=== PATIENT | female | born 1985 | race Caucasian/White ===

== ENCOUNTER → 2018-02-02 03:03 | Outpatient (CLI) | payer BC, SELFPAY ==
[2018-02-02 09:18] LABS: Absolute Basophil Count 0.03 k/cumm (0.0-0.2); Absolute Eosinophil Count 0.17 k/cumm (0.0-0.7); Absolute Lymphocyte Count 1.79 k/cumm (1.2-3.4); Absolute Monocyte Count 0.28 k/cumm (0.11-0.7); Absolute Neutrophil Count 2.67 k/cumm (1.2-6.7); Basophils % 0.6; Eosinophils % 3.4; HCT 38.2 % (36.0-46.0); HGB 12.9 g/dL (12.0-15.5); Lymphocytes % 36.2; Mean Corp. HGB Concentration 33.8 g/dL (32.0-36.0); Mean Corpuscular Hemoglobin 28.3 pg (27.0-33.0); Mean Corpuscular Volume 83.8 fL (80-95); Mean Platelet Volume 11.8 fL (8.0-11.0); Monocytes % 5.7; Neutrophils % 54.1; Platelet Count 157 x1000/uL (130-400); RBC 4.56 m/cumm (4.00-5.20); RBC Distribution Width 12.5 % (11.7-14.6); White Blood Cell Count 4.94 k/cumm (4.4-10.8)
[2018-02-02 10:59] LABS: Cholesterol 159 mg/dL (50-200); Glucose 79 mg/dL (70-100); HDL Cholesterol 62 mg/dL (40-60); LDL CHOLESTEROL 90 mg/dL (<100); TSH (W/Ref FT4) 1.73 uIU/mL (0.358-3.74); Triglyceride 35 mg/dL (30-150)
== END ==
PROVIDERS: PCP Nurse Practitioner Family; Visit Provider Nurse Practitioner Family
DX: Z00.00 Encounter for general adult medical examination without abnormal findings (principal); L65.9 Nonscarring hair loss, unspecified; K58.2 Mixed irritable bowel syndrome
CPT/HCPCS: 36415; 80061; 82947; 83721; 84443; 85025

== ENCOUNTER 2018-10-09 09:37 | Emergency (ER) | payer OTHER, SELFPAY ==
--- NOTE | 2018-10-09 09:47 | NUR.NOTE ---
pt states that on night she noticed a small rash under her left breast and had burning stabbing pain that radiates along her rib to the spinal cord
[2018-10-09 09:49] VITALS: BP 113/76; PULSE 77; RESP 16; TEMP 37.3; O2SAT 99
--- NOTE | 2018-10-09 10:11 | W.ED.GENAD ---
Discharge Plan Disposition Patient Disposition: HOME Condition: Stable Discharge Details Chief Complaint: RashLesion Clinical Impression: Herpes zoster Primary Care Provider: Marybeth Bsasett ED Provider: Warner Wolfe Home Meds and New Rx's Prescriptions: New valacyclovir 1 gram tablet 1,000 mg PO TID 7 Days Qty: 21 RF: 0 Discharge Instructions Instructions: Shingles (ED) Additional Instructions: You may continue to use [id number] acetaminophen or Tylenol as needed for discomfort, you may also apply lidocaine cream or patch to area of rash or sensitivity. Return immediately to the emergency department for any significant worsening of symptoms or further concerns otherwise follow-up with your primary care provider as needed for reassessment or if not improving. Referrals: Marybeth Bassett, FISHER MUSSEL [Primary Care Provider] - (As needed for reassessment) Medical Decision Making Patient presenting the emergency department for chief complaint of rash. She states that this started 2-1/2 days ago after having a sore throat and cold-like symptoms for 24 hours. She states significant sensitivity just below the bra line on the left anterior chest wall radiating to the back. Patient denies any fever chills, other rash, other symptoms. Physical exam shows a 4 cm diameter circular patch of vesicles with erythema and sensitivity to palpation of the skin along the associated dermatome. I feel that this is consistent with shingles. Patient denies any chance of and states menstrual cycle 2 weeks ago. Given single area of rash I do not feel that steroids are needed the patient was encouraged to use pekx-rzb-zmqmifm pain medication including lidocaine for discomfort. Patient placed on valacyclovir. Return precautions discussed. After discussion of diagnosis and plan of care patient has no further needs, questions, or concerns and states clear understanding to return to the emergency department for any worsening symptoms. HPI General Mode of arrival: ambulatory. Date/Time Provider Initiated Documentation: 10/09/18 10:00. Limitations to Documentation: no limitations. Information obtained by: patient and RN notes reviewed. History of Present Illness 32 year old F presents to the emergency department with the chief complaint of rash, described as moderate, with intensity rated at 6. Quality is described as burning, and is localized to the chest (left chest wall). Patient started experiencing this day(s) (3) and it has been constant. No relieving factors improve symptom(s), Patient did receive the following treatments prior to arrival, none Related Data Home Medications Medication Instructions Recorded Confirmed valacyclovir 1,000 mg PO TID 7 Days #21 tab 10/09/18 Previous Rx's Medication Instructions Recorded valacyclovir 1,000 mg PO TID 7 Days #21 tab 10/09/18 Allergies Allergy/AdvReac Type Severity Reaction Status Date / Time amoxicillin trihydrate Allergy Intermediate SORE Unverified 10/09/18 09:51 [From Augmentin] JOINTS AND RASH potassium clavulanate Allergy Intermediate SORE Unverified 10/09/18 09:51 [From Augmentin] JOINTS AND RASH cefazolin sodium [From Ancef] AdvReac Unknown Unverified 10/09/18 09:51 General Stated Complaint: RashLesion ENRICO: 5 Review of Systems Constitutional Denies body ache(s), Denies chills, Denies fever(s) and Reports other (ill feeling) ENT Reports sore throat Integumentary/Breasts Reports as per HPI and Reports rash PFSH Medical History Allergic rhinitis (Inactive) IBS (irritable bowel syndrome) (Inactive) Surgical History Cholecystectomy (Inactive 09/12/13) Colonoscopy - MAC (Inactive) EGD - MAC (Inactive 05/19/14) Family History Mother Melanoma in situ Father No problems noted. Brother No problems noted. Brother No problems noted. Son No problems noted. Son No problems noted. Daughter No problems noted. Maternal Grandfather Melanoma in situ Non Hodgkin's lymphoma Maternal Grandmother Myocardial infarction Heart disease Paternal Grandfather Heart disease Paternal Grandmother No problems noted. Social History Smoking/Tobacco Use Status: Never Alcohol Intake: never Drug use: Never Substance use type: does not use Do you feel safe at home: Yes Do you feel safe in your relationship?: Yes History History 4 Para 3 Hx # Term Pregnancies Multiple births Hx # Pregnancies Ectopic pregnancies AB induced 1 Hx Number of Living Children 3 AB spontaneous Exam Const General: cooperative, no acute distress and not ill appearing Orientation: alert, awake and oriented x3 Resp Effort & Inspection: normal respiratory effort, able to speak in complete sentences and no respiratory distress Skin Rashes: rashes noted (Erythematous vesicular rash left anterior chest wall) Neuro General: alert, awake and oriented x3 Course Vital Signs Temperature 37.3 C 10/09/18 09:49 Pulse 77 10/09/18 09:49 Respiratory Rate 16 10/09/18 09:49 Blood Pressure 113/76 10/09/18 09:49 Pulse Oximetry 99 10/09/18 09:49 Temperature 37.3 C 10/09/18 09:49 Temperature Source Tympanic 10/09/18 09:49 Pulse 77 10/09/18 09:49 Respiratory Rate 16 10/09/18 09:49 Respiratory Effort 10/09/18 09:51 Blood Pressure 113/76 10/09/18 09:49 Blood Pressure Position Sitting 10/09/18 09:49 Pulse Oximetry 99 10/09/18 09:49 Oxygen Delivery Method Room Air 10/09/18 09:49 Oxygen Flow Rate 0 10/09/18 09:49 Pain Level 7 10/09/18 09:49
--- NOTE | 2018-10-09 10:15 | ED.GENADUL_ITS ---
Discharge Plan Disposition Patient Disposition: HOME Condition: Stable Discharge Details Chief Complaint: RashLesion Clinical Impression: Herpes zoster Primary Care Provider: Marybeth Bassett ED Provider: Warner Wolfe Home Meds and New Rx's Prescriptions: New valacyclovir 1 gram tablet 1,000 mg PO TID 7 Days Qty: 21 RF: 0 Discharge Instructions Instructions: Shingles (ED) Additional Instructions: You may continue to use lpij-qfo-mczqyyv acetaminophen or Tylenol as needed for discomfort, you may also apply lidocaine cream or patch to area of rash or sensitivity. Return immediately to the emergency department for any significant worsening of symptoms or further concerns otherwise follow-up with your primary care provider as needed for reassessment or if not improving. Referrals: Marybeth Bassett, [employer] [Primary Care Provider] - (As needed for reassessment) Medical Decision Making Patient presenting the emergency department for chief complaint of rash. She states that this started 2-1/2 days ago after having a sore throat and cold-like symptoms for 24 hours. She states significant sensitivity just below the bra line on the left anterior chest wall radiating to the back. Patient denies any fever chills, other rash, other symptoms. Physical exam shows a 4 cm diameter circular patch of vesicles with erythema and sensitivity to palpation of the skin along the associated dermatome. I feel that this is consistent with shingles. Patient denies any chance of and states menstrual cycle 2 w eeks ago. Given single area of rash I do not feel that steroids are needed the patient was encouraged to use xgaq-kmn-argbaaq pain medication including lidocaine for discomfort. Patient placed on valacyclovir. Return precautions discussed. After discussion of diagnosis and plan of care patient has no further needs, questions, or concerns and states clear understanding to return to the emergency department for any worsening symptoms. HPI General Mode of arrival: ambulatory . Date/Time Provider Initiated Documentation: 10/09/18 10:00 . Limitations to Documentation: no limitations . Information obtained by: patient and RN notes reviewed . History of Present Illness 32 year old F presents to the emergency department with the chief complaint of rash, described as moderate, with intensity rated at 6. Quality is described as burning, and is localized to the chest (left chest wall). Patient started experiencing this day(s) (3) and it has been constant. No relieving factors improve symptom(s), Patient did receive the following treatments prior to arrival, none Related Data Home Medications Medication Instructions Recorded Confirmed valacyclovir 1,000 mg PO TID 7 Days #21 tab 10/09/18 Previous Rx's Medication Instructions Recorded valacyclovir 1,000 mg PO TID 7 Days #21 tab 10/09/18 Allergies Allergy/AdvReac Type Severity Reaction Status Date / Time amoxicillin trihydrate Allergy Intermediate SORE Unverified 10/09/18 09:51 [From Augmentin] JOINTS AND RASH potassium clavulanate Allergy Intermediate SORE Unverified 10/09/18 09:51 [From Augmentin] JOINTS AND RASH cefazolin sodium [From Ancef] AdvReac Unknown Unverified 10/09/18 09:51 General Stated Complaint: RashLesion ENRICO: 5 Review of Systems Constitutional Denies body ache(s), Denies chills, Denies fever(s) and Reports other (ill feeling) ENT Reports sore throat Integumentary/Breasts Reports as per HPI and Reports rash PFSH Medical History Allergic rhinitis (Inactive) IBS (irritable bowel syndrome) (Inactive) Surgical History Cholecystectomy (Inactive 09/12/13) Colonoscopy - MAC (Inactive) EGD - MAC (Inactive 05/19/14) Family History Mother Melanoma in situ Father No problems noted. Brother No problems noted. Brother No problems noted. Son No problems noted. Son No problems noted. Daughter No problems noted. Maternal Grandfather Melanoma in situ Non Hodgkin's lymphoma Maternal Grandmother Myocardial infarction Heart disease Paternal Grandfather Heart disease Paternal Grandmother No problems noted. Social History Smoking/Tobacco Use Status: Never Alcohol Intake: never Drug use: Never Substance use type: does not use Do you feel safe at home: Yes Do you feel safe in your relationship?: Yes History History 4 Para 3 Hx # Term Pregnancies Multiple births Hx # Pregnancies Ectopic pregnancies AB induced 1 Hx Number of Living Children 3 AB spontaneous Exam Const General: cooperative, no acute distress and not ill appearing Orientation: alert, awake and oriented x3 Resp Effort & Inspection: normal respiratory effort, able to speak in complete sentences and no respiratory distress Skin Rashes: rashes noted (Erythematous vesicular rash left anterior chest wall) Neuro General: alert, awake and oriented x3 Course Vital Signs Temperature 37.3 C 10/09/18 09:49 Pulse 77 10/09/18 09:49 Respiratory Rate 16 10/09/18 09:49 Blood Pressure 113/76 10/09/18 09:49 Pulse Oximetry 99 10/09/18 09:49 Temperature 37.3 C 10/09/18 09:49 Temperature Source Tympanic 10/09/18 09:49 Pulse 77 10/09/18 09:49 Respiratory Rate 16 10/09/18 09:49 Respiratory Effort 10/09/18 09:51 Blood Pressure 113/76 10/09/18 09:49 Blood Pressure Position Sitting 10/09/18 09:49 Pulse Oximetry 99 10/09/18 09:49 Oxygen Delivery Method Room Air 10/09/18 09:49 Oxygen Flow Rate 0 10/09/18 09:49 Pain Level 7 10/09/18 09:49
[2018-10-09 10:35] VITALS: BP 113/76; PULSE 77; RESP 16; TEMP 37.3; O2SAT 99
== END 2018-10-09 10:36 | disposition home or self-care (01) ==
PROVIDERS: Emergency Provider Nurse Practitioner Family; PCP Nurse Practitioner Family
DX: B02.9 Zoster without complications (principal)
CPT/HCPCS: 99283

== ENCOUNTER 2019-03-09 08:46 | Outpatient (CLI) | payer OTHER, SELFPAY ==
[2019-03-09 11:59] LABS: PTT Activated 25.7 sec (21.0-31.4)
[2019-03-09 12:54] LABS: HCT 39.5 % (36.0-46.0); Mean Corp. HGB Concentration 32.9 g/dL (32.0-36.0); Mean Corpuscular Hemoglobin 27.8 pg (27.0-33.0); Mean Corpuscular Volume 84.4 fL (80-95); Platelet Count 169 x1000/uL (130-400); RBC 4.68 m/cumm (4.00-5.20); RBC Distribution Width 12.8 % (11.7-14.6); White Blood Cell Count 4.21 k/cumm (4.4-10.8)
== END 2019-03-09 09:06 ==
PROVIDERS: PCP Nurse Practitioner Family; Visit Provider Family Medicine
DX: D64.9 Anemia, unspecified (principal)
CPT/HCPCS: 36415; 85027; 85730

== ENCOUNTER 2019-03-15 02:32 | Outpatient (CLI) | payer OTHER, SELFPAY ==
--- NOTE | 2019-03-18 10:37 | HOLTER_ITS ---
DATE OF DICTATION: March 18, 2019 INDICATION: Palpitations. ANALYSIS TIME: 48 hours. Baseline sinus rhythm. Average heart rate 76 bpm, minimum heart rate 58 bpm, maximum heart rate 119 bpm. Rare isolated PVC's. No non-sustained VT. Rare isolated PAC's. No SVT or atrial fibrillation. No significant pauses or bradyarrhythmias. Patient diary entries of fluttering sensation correspond to sinus rhythm.
== END 2019-03-15 02:52 ==
PROVIDERS: PCP Nurse Practitioner Family; Visit Provider Family Medicine
DX: R00.2 Palpitations (principal); I49.3 Ventricular premature depolarization; I49.1 Atrial premature depolarization
CPT/HCPCS: 93225

== ENCOUNTER 2019-03-17 08:45 | Outpatient (CLI) | payer OTHER, SELFPAY | END 2019-03-17 09:05 | PROVIDERS: PCP Nurse Practitioner Family; Visit Provider Family Medicine | DX: R00.2 Palpitations (principal); I49.3 Ventricular premature depolarization; I49.1 Atrial premature depolarization | CPT/HCPCS: 93226 ==

== ENCOUNTER 2019-03-19 11:32 | Emergency (ER) | payer OTHER, SELFPAY ==
[2019-03-19] VITALS (25 sets, daily range): BP systolic 94–142; BP diastolic 64–83; PULSE 64–92; RESP 9–20; TEMP 36.5; O2SAT 87–100
[2019-03-19 12:18] LABS: Abs Immature Grans 0.03 k/cumm (0.0-0.09); Absolute Basophil Count 0.02 k/cumm (0.0-0.2); Absolute Eosinophil Count 0.02 k/cumm (0.0-0.7); Absolute Lymphocyte Count 1.71 k/cumm (1.2-3.4); Absolute Monocyte Count 0.24 k/cumm (0.11-0.7); Absolute Neutrophil Count 3.82 k/cumm (1.2-6.7); Basophils % 0.3; Eosinophils % 0.3; HCT 40.9 % (36.0-46.0); HGB 14.1 g/dL (12.0-15.5); Immature Grans % 0.5; Lymphocytes % 29.3; Mean Corp. HGB Concentration 34.5 g/dL (32.0-36.0); Mean Corpuscular Hemoglobin 27.9 pg (27.0-33.0); Mean Platelet Volume 12.1 fL (8.0-11.0); Monocytes % 4.1; Neutrophils % 65.5; Platelet Count 171 x1000/uL (130-400); RBC 5.05 m/cumm (4.00-5.20); RBC Distribution Width 13.1 % (11.7-14.6); White Blood Cell Count 5.84 k/cumm (4.4-10.8)
--- NOTE | 2019-03-19 12:35 | W.ED.GENAD ---
Discharge Plan Disposition Patient Disposition: HOME Condition: Improving Discharge Details Chief Complaint: Chest Pain Clinical Impression: Atypical chest pain Primary Care Provider: Marybeth Bassett ED Provider: Prakash Delatorre Home Meds and New Rx's Prescriptions: No Action No Known Home Meds RF: 0 Discharge Instructions Instructions: Chest Pain (ED) Additional Instructions: We will ask our care management team to make you a follow-up appointment for recheck at [facility]. Home to rest today. Return if you develop a fever, cough, shortness of breath, recurrent chest discomfort or any other acute concern. Your work-up today included blood work, CT of the chest, and EKG. Medical Decision Making 33-year-old female who is had months of intermittent episodes of fluttering sensation in her chest. She recently did go undergo Holter monitor for 48 hours which revealed single PVC, sinus tachycardia to the 130s, but no ventricular arrhythmias. Today while picking apples she developed central chest discomfort she describes 6 out of 10 pressure radiating to the right arm, resolved by the time of presentation to the ED. She arrives afebrile, blood pressure 142/83, normal pulse and oxygenation. Exam is reassuring. Her differential diagnosis would include PE, chest mass, pneumonitis, acute coronary syndrome of I feel this is less likely given her lack of significant risk factors. Patient had IV access established, given fluid bolus, referred for laboratory testing, EKG, chest imaging. Patient's laboratory data is reassuring with unremarkable CBC, chemistries that note slight the elevated creatinine of 1.04, negative troponin, TSH that was within normal limits. Repeat troponin was obtained and negative as well. Patient without persistent symptoms during nearly 4 hours of ER observation. Discussed with her that she may have a mild costochondritis or other benign process. We will ask care management to arrange an outpatient follow-up for her in clinic. She is stable, improved, appropriate for discharge home at this time. ECG Data Attestation: I personally reviewed and interpreted this ECG (s) as follows: Interpretation: Normal sinus rhythm with a rate of 95, the QRS is narrow, normal FL interval, no ST segment elevation HPI General Mode of arrival: ambulatory. Date/Time Provider Initiated Documentation: 03/19/19 11:39. Limitations to Documentation: no limitations. Information obtained by: patient and family. History of Present Illness 33 year old F presents to the emergency department with the chief complaint of Months of fluttering in chest, chest pain today, shortness of breath, described as moderate, Quality is described as dull, and is localized to the chest. Patient extremity. Patient started experiencing this hour(s) and it has been now resolved. No relieving factors improve symptom(s), No exacerbating factors reported . Patient notes chest pain and shortness of breath. Patient did receive the following treatments prior to arrival, none Related Data Home Medications Medication Instructions Recorded Confirmed Unknown [No Known Home Meds] 03/19/19 03/19/19 Allergies Allergy/AdvReac Type Severity Reaction Status Date / Time amoxicillin trihydrate Allergy Intermediate SORE Unverified 03/19/19 11:40 [From Augmentin] JOINTS AND RASH potassium clavulanate Allergy Intermediate SORE Unverified 03/19/19 11:40 [From Augmentin] JOINTS AND RASH cefazolin sodium [From Ancef] AdvReac Unknown Unverified 03/19/19 11:40 General Stated Complaint: Chest Pain ENRICO: 3 Review of Systems Review of Systems Narrative: Recent Holter monitor unremarkable. No fever, chills, cough. No changes to bowel or bladder habits. 8 systems reviewed and otherwise negative [facility] Medical History Allergic rhinitis (Inactive) IBS (irritable bowel syndrome) (Inactive) Surgical History Cholecystectomy (Inactive 09/12/13) DR. TORRES Colonoscopy - MAC (Inactive) 02/13/14; DR. Fallon JI EGD - MAC (Inactive 05/19/14) Family History Mother Melanoma in situ Father No problems noted. Brother No problems noted. Brother No problems noted. Son No problems noted. Son No problems noted. Daughter No problems noted. Maternal Grandfather Melanoma in situ Non Hodgkin's lymphoma Maternal Grandmother Myocardial infarction Heart disease Paternal Grandfather Heart disease Paternal Grandmother No problems noted. Social History Smoking/Tobacco Use Status: Never Alcohol Intake: never Drug use: Never Substance use type: does not use Do you feel safe at home: Yes Do you feel safe in your relationship?: Yes History History 4 Para 3 Hx # Term Pregnancies Multiple births Hx # Pregnancies Ectopic pregnancies AB induced 1 Hx Number of Living Children 3 AB spontaneous Exam Narrative Exam Narrative: GEN: awake, alert, oriented 3. Pleasant, well groomed, interactive. HEAD: Normocephalic, atraumatic ENT: Mucous membranes moist, oropharynx unremarkable, External ear exam unremarkable EYES: PERRL, EOMI NECK: Full ROM, no FILOMENA, no menigismus CHEST/RESP: Nontender, clear to auscultation bilateral, no wheeze/rhonchi/rales CARDIOVASCULAR: RRR, no murmur, rub jamila. 2+ Rad pulse bilateral ABDOMEN: Soft, nontender, no mass. +Bowel sounds EXT: Full ROM, no edema, no rash Neuro: Grossly normal neurologic exam, conversant, interactive. Psych: Speech fluent, thoughts congruent, affect anxious Course Vital Signs Vital signs: Vital Signs Temperature 36.5 C 03/19/19 11:36 Pulse 86 03/19/19 11:36 Respiratory Rate 16 03/19/19 11:36 Blood Pressure 142/83 H 03/19/19 11:36 Temperature 36.5 C 03/19/19 11:36 Temperature Source Skin 03/19/19 11:36 Pulse 86 03/19/19 11:36 Respiratory Rate 16 03/19/19 11:36 Respiratory Effort Non-Labored 03/19/19 12:10 Respiratory Depth Normal 03/19/19 12:10 Respiratory Pattern Normal 03/19/19 12:10 Blood Pressure 142/83 H 03/19/19 11:36 Pain Level 6 03/19/19 11:36 Lab/Test Results Lab/Test Results: Laboratory Tests Range/Units 03/19/19 12:05 WBC (4.4-10.8) k/cumm 5.84 RBC (4.00-5.20) m/cumm 5.05 Hgb (12.0-15.5) g/dL 14.1 Hct (36.0-46.0) % 40.9 MCV (80-95) fL 81.0 MCH (27.0-33.0) pg 27.9 MCHC (32.0-36.0) g/dL 34.5 RDW (11.7-14.6) % 13.1 Plt Count (130-400) x1000/uL 171 MPV (8.0-11.0) fL 12.1 H Immature Gran % 0.5 Neutrophils % 65.5 Lymphocytes % 29.3 Monocytes % 4.1 Eosinophils % 0.3 Basophils % 0.3 Absolute Neutrophils (1.2-6.7) k/cumm 3.82 Absolute Lymphocytes (1.2-3.4) k/cumm 1.71 Absolute Monocytes (0.11-0.7) k/cumm 0.24 Absolute Eosinophils (0.0-0.7) k/cumm 0.02 Absolute Basophils (0.0-0.2) k/cumm 0.02
[2019-03-19 12:38] LABS: ALT 13 U/L (14-59); AST 12 U/L (15-37); Albumin 4.1 g/dL (3.4-5.0); Alkaline Phosphatase 82 U/L (46-116); Anion Gap 10.3 mmol/L (3-11); BUN 12 mg/dL (7-18); Bilirubin, Total 0.4 mg/dL (0.2-1.0); CO2 24.7 mmol/L (21.0-32.0); CREATININE 1.04 mg/dL (0.55-1.02); Calcium 8.5 mg/dL (8.5-10.1); Chloride 105 mmol/L (98-107); Glucose 117 mg/dL (70-100); Magnesium 2.1 mg/dL (1.8-2.4); Potassium 3.8 mmol/L (3.5-5.1); Sodium 140 mmol/L (136-145); Total Protein 7.8 g/dL (6.4-8.2)
[2019-03-19] MEDS: Normal Saline 1,000 ML 1000 ML IV (12:38)
[2019-03-19 12:40] LABS: Troponin I < 0.05 ng/mL (0.00-0.06)
[2019-03-19 13:18] LABS: D-Dimer 172 ng/mlFEU (<500)
[2019-03-19 13:41] LABS: TSH 1.85 uIU/mL (0.36-3.74)
[2019-03-19] MEDS: Omnipaque 350 MG/ML 100 ML BTL IJ (13:42)
--- NOTE | 2019-03-19 13:45 | DI.CT_ITS ---
EXAM: CT CHEST PE CTA CLINICAL HISTORY: Chest pain, radiating to R. TECHNIQUE: Imaging Protocol: Axial CT angiography was performed with multi-slice acquisition and mu lti-planar and/or 3D reconstructions. CONTRAST MATERIAL: Intravenous: Omnipaque 350 Contrast volume:structured data in ml Contrast route:I V - Oral:yes / no COMPARISON: No exams were available for comparison FINDINGS: Pulmonary Arteries: No evidence of filling defect to suggest pulmonary emboli. Tracheobronchial tree: Patent where visualized. Mediastinum and Aracelis: No dominant adenopathy or fluid collection. Pulmonary parenchyma: No consolidation or dominant measurable mass. No architectural distortion. Pleura: No effusion or pneumothorax. Heart/Aorta: Thoracic aorta non-dilated. The heart is not dilated. No coronary artery calcifications are seen. Upper abdomen: Unremarkable. IMPRESSION: No evidence of pulmonary embolism. DATA REPOSITORY: All CT scans at this facility are submitted to the National Radiology Data Registry (NRDR) Dose Index Registry (DIR) with the [employer] (ACR). RADIATION OPTIMIZATION: All CT scans at this facility use at least one of these dose optimization te chniques: automated exposure control; mA and/or kV adjustment per patient size (includes targeted exa ms where dose is matched to clinical indication); or iterative reconstruction.
--- NOTE | 2019-03-19 14:25 | DI.VRAD_ITS ---
PROCEDURE INFORMATION: Exam: CT Angiography Chest With Contrast Exam date and time: 03/19/2019 12:59 PM Clinical history: 33 years old, female; Other: Chest pain, radiating to R TECHNIQUE: Imaging protocol: Computed tomographic angiography of the chest with intravenous contrast. 3D rendering: MIP reconstructed images were created and reviewed. Radiation optimization: All CT scans at this facility use at least one of these dose optimization techniques: automated exposure control; mA and/or kV adjustment per patient size (includes targeted exams where dose is matched to clinical indication); or iterative reconstruction. Contrast material: OMNIPAQUE 350; Contrast volume: 80 ml; Contrast route: IV; COMPARISON: CR ABD FLAT UPRIGHT PA CHEST 06/08/2014 10:05 AM FINDINGS: Pulmonary arteries: There are no intraluminal filling defects identified within the pulmonary arterial branches to suggest acute pulmonary embolus. Aorta: The aorta is non-aneurysmal. No acute aortic abnormality is identified. Lungs: There is no significant airspace consolidation identified. There is no evidence of an endobronchial lesion. No suspicious pulmonary parenchymal mass or nodule is identified. Pleural space: Large effusion, pneumothorax is not seen Heart: Heart size is within normal limits. There is no significant pericardial effusion. Lymph nodes: No significant adenopathy. Bones/joints: There is no acute or destructive bony abnormality identified. Soft tissues: Subcutaneous soft tissues are unremarkable. Other findings: No acute findings are identified in the upper abdomen. IMPRESSION: No acute findings. No evidence of acute pulmonary embolus. Dictated and Authenticated by: Yuli Ramirez MD. Ordering:FATUMA Randall MD
[2019-03-19 15:19] LABS: Troponin I < 0.05 ng/mL (0.00-0.06)
--- NOTE | 2019-03-19 15:43 | NUR.NOTE ---
Referral faxed to [facility].Nursing Note:
== END 2019-03-19 16:00 | disposition home or self-care (01) ==
PROVIDERS: Emergency Provider Emergency Medicine; PCP Nurse Practitioner Family
DX: R07.89 Other chest pain (principal)
CPT/HCPCS: 36415; 71275; 80053; 96360; 99285; 83735; 84443; 84484; 85025; 85379; 99284; J3490

== ENCOUNTER 2019-07-22 13:46 | Outpatient (REF) | payer MEDICAID, SELFPAY ==
--- NOTE | 2019-07-22 13:15 | PAPFT_PTH ---
PATIENT: Sandra Gomez LOC: [facility] U#:[id number] AGE/SX: 33/F ROOM: RE07/22/[address]: JENS Grey : 1985 BED: DIS: 07/22/2019 SPEC #: [id number] RECD: 07/22/19 17:50 STATUS: EMILE REAnna #: [id number] ARACELI: 07/22/19 13:[address]: Olivia Salazar DEPT: [facility] Cytology RECD BY: Sasha Bliss ENTERED: 07/22/19 17:50 SP TYPE: PAPFT COBY DR: JENS Wright Tissues: 1 - CX/ENDOCX FOR PAP SMEARS Procedures: PAP THIN PREP/UVM Screening HPV DNA PROBE Comments: [id number]
== END 2019-07-22 14:06 ==
LOC: LBN 13:46
PROVIDERS: PCP Nurse Practitioner Family; Visit Provider Nurse Practitioner Family
DX: Z12.4 Encounter for screening for malignant neoplasm of cervix (principal); Z11.51 Encounter for screening for human papillomavirus (HPV)
CPT/HCPCS: 88142; 87624

== ENCOUNTER 2020-08-28 12:46 | Outpatient (REF) | payer MEDICAID, SELFPAY ==
--- NOTE | 2020-08-28 10:00 | PAPFT_PTH ---
PATIENT: Sandra Gomez LOC: [facility] U#:[id number] AGE/SX: 34/F ROOM: RE08/28/[address]: JENS Grey : 1985 BED: DIS: 08/28/2020 SPEC #: [id number] RECD: 08/28/20 17:22 STATUS: EMILE REAnna #: [id number] ARACELI: 08/28/20 10:[address]: Olivia Salazar DEPT: [facility] Cytology RECD BY: Sasha Bliss ENTERED: 08/28/20 17:23 SP TYPE: PAPFT COBY DR: JENS Wright Tissues: 1 - CX/ENDOCX FOR PAP SMEARS Procedures: PAP THIN PREP/UVM Screening HPV DNA PROBE Comments: [id number]
== END 2020-08-28 12:47 | disposition home or self-care (01) ==
LOC: LBN 12:46
PROVIDERS: PCP Nurse Practitioner Family; Visit Provider Nurse Practitioner Family
DX: Z12.4 Encounter for screening for malignant neoplasm of cervix (principal); Z11.51 Encounter for screening for human papillomavirus (HPV)
CPT/HCPCS: 88142; 87624

== ENCOUNTER 2020-09-20 08:52 | Outpatient (CLI) | payer MEDICAID, SELFPAY ==
[2020-09-21 13:07] LABS: COVID-19 RT-PCR UVMMC Result Negative (Negative)
== END 2020-09-20 08:53 | disposition home or self-care (01) ==
LOC: LBO 08:53
PROVIDERS: PCP Nurse Practitioner Family; Visit Provider Nurse Practitioner Family
DX: Z20.822 Contact with and (suspected) exposure to COVID-19 (principal)
CPT/HCPCS: U0003

== ENCOUNTER 2020-09-25 09:38 | Outpatient (CLI) | payer MEDICAID, SELFPAY ==
[2020-09-26 17:58] LABS: COVID-19 RT-PCR UVMMC Result Negative (Negative)
== END 2020-09-25 09:39 | disposition home or self-care (01) ==
LOC: LBO 09:38
PROVIDERS: PCP Nurse Practitioner Family; Visit Provider Nurse Practitioner Family
DX: Z20.822 Contact with and (suspected) exposure to COVID-19 (principal)
CPT/HCPCS: U0003

== ENCOUNTER 2021-03-07 13:17 | Outpatient (REF) | payer OTHER, SELFPAY ==
[2021-03-08 16:36] LABS: COVID-19 RT-PCR UVMMC Result Negative (Negative)
== END 2021-03-07 13:18 | disposition home or self-care (01) ==
LOC: LBN 13:17
PROVIDERS: PCP Nurse Practitioner Family
DX: Z20.822 Contact with and (suspected) exposure to COVID-19 (principal); R06.02 Shortness of breath
CPT/HCPCS: U0003

== ENCOUNTER 2021-09-26 00:35 | Outpatient (CLI) | payer MEDICAID, SELFPAY ==
--- NOTE | 2021-09-26 07:00 | DI.US_ITS ---
Exam(s) US PELVIS TRANSVAGINAL EXAM: US PELVIS TRANSVAGINAL CLINICAL HISTORY: Abnormal bleeding,N93.9. TECHNIQUE: Transabdominal and transvaginal pelvic ultrasound was performed using standard protocol. COMPARISON: US OB ASSESSMENT - WEIGHT/JC from 08/10/2017 FINDINGS: KIDNEYS: Kidneys are symmetric in size. No evidence of renal calculi. No evidence of hydronephrosis. No renal mass or cyst identified. UTERUS: Position: Anteverted. Size: 10.4 long by 4.4 AP by 5.4 transverse cm Endometrium: 1.0 cm. Normal for patient's menstrual status. Myometrium: Unremarkable. Cervix: Unremarkable. OVARIES: Right: 3.2 x 2.6 x 1.8 cm Cyst or mass: No suspicious cystic or solid masses. Left: 2.6 x 2.4 x 2.6 cm Cyst or mass: No suspicious cystic or solid masses. DOPPLER: Color: Symmetric and uniform flow to both ovaries. No hyperemia. CUL-DE-SAC: Free fluid: None. Other: None. IMPRESSION: 1. Normal sonographic appearance of the kidneys. 2. Normal-appearing uterus with endometrial stripe within normal limits. 3. Unremarkable bilateral ovaries. DATA REPOSITORY:
== END 2021-09-26 00:55 ==
PROVIDERS: PCP Nurse Practitioner Family; Visit Provider Nurse Practitioner Family
DX: N93.8 Other specified abnormal uterine and vaginal bleeding (principal)
CPT/HCPCS: 76830; 76856

== ENCOUNTER 2021-12-21 18:27 | Emergency (ER) | payer MEDICAID, SELFPAY ==
[2021-12-21 18:32] VITALS: BP 123/81; PULSE 71; RESP 18; TEMP 36.6; O2SAT 100
[2021-12-21 18:56] LABS: Bilirubin Negative (Negative); Blood Trace-intact (Negative); Clarity Clear (Clear); Glucose Negative (Negative); Ketones Negative (Negative); Leukocyte Esterase Negative (Negative); Nitrite Negative (Negative); Urobilinogen 0.2 EU/dL (Up TO 0.2); pH 6.5 (5-8)
--- NOTE | 2021-12-21 19:02 | ED.GENADUL_ITS ---
Discharge Plan Disposition Patient Disposition: HOME Condition: Stable Discharge Details Clinical Impression: Abdominal pain Primary Care Provider: Marybeth Bassett ED Provider: Lin Briceño Home Meds and New Rx's Prescriptions: No Action clotrimazole-betamethasone 1-0.05 % cream 1 applic topical BID 10 Days Qty: 15 2RF Discharge Instructions Instructions: Abdominal Pain (ED) Additional Instructions: Please have an outpatient ultrasound as scheduled by the diagnostic imaging department. You may follow-up for the results in the emergency department or with your PCP. Continue to take the omeprazole daily. Advance diet as tolerated. Please stay away from anything fried fatty dairy or spicy. Follow up with primary care provider in 3-5 days. Return to ED sooner if any worsening pain, fever, vomiting, diarrhea or concerns. Increase oral fluids. Referrals: Marybeth Bassett, REGISTRATION REP [Primary Care Provider] - 5 days Medical Decision Making 36-year-old female presents to the ER with chief complaint of midepigastric abdominal pain that radiates to the right upper quadrant which has been ongoing intermittently for the last 2 weeks. worsening constant pain over the last 24 to 48 hours. She reports nausea and acid reflux type symptoms denies any vomiting no diarrhea denies any chest pain shortness of breath cough fever or chills. CBC, CMP, lipase, urinalysis, urine POC HCG negative per RN report. Differential diagnosis includes vomiting to gastroenteritis, gallstones, GERD, peptic ulcer disease Will consider CT abdomen pelvis pending labs. Urinalysis shows trace blood no leukocytes no nitrites no evidence of UTI. Patient is currently on her menses. No evidence of leukocytosis CBC largely within normal limits CMP also largely within normal notes lipase within normal limits, Discussed lab results with patient and options for CT imaging versus outpatient ultrasound. Shared decision making discussed patient opted to have outpatient ultrasound early next week. GI cocktail ordered to see if this improves patient discomfort. This text was generated using [employer]Gameation system, please disregard any oddities of phrase or misspellings. Medical Records Medical records reviewed: Yes I reviewed the patient's medical records. Lab Data Lab results reviewed: Yes I reviewed the patient's lab results. Labs: Laboratory Tests Range/Units 12/21/21 12/21/21 12/21/21 17:40 19:00 19:00 WBC (4.4-10.8) 10^3/uL 8.35 RBC (3.93-5.22) 10^6/uL 4.44 Hgb (11.2-15.7) g/dL 12.8 Hct (36.0-46.0) % 38.6 MCV (80-95) fL 87 MCH (27.0-33.0) pg 28.8 MCHC (32.0-36.0) % 33.2 RDW (11.7-14.6) % 11.9 Plt Count (130-400) 10^3/uL 173 MPV (8.0-11.0) fL 11.5 H Immature Gran % 0.4 Neutrophils % 66.4 Lymphocytes % 23.2 Monocytes % 5.7 Eosinophils % 3.8 Basophils % 0.5 Nucleated RBC % (0.0-0.3) % 0.0 Absolute Neutrophils (1.2-6.7) 10^3/uL 5.54 Absolute Lymphocytes (1.2-3.4) 10^3/uL 1.94 Absolute Monocytes (0.1-0.8) 10^3/uL 0.48 Absolute Eosinophils (0.0-0.7) 10^3/uL 0.32 Absolute Basophils (0.0-0.2) 10^3/uL 0.04 Sodium (136-145) mmol/L 137 Potassium (3.5-5.1) mmol/L 4.1 Chloride (98-107) mmol/L 103 Carbon Dioxide (21.0-32.0) mmol/L 26.3 Anion Gap (3-11) mmol/L 7.7 BUN (7-18) mg/dL 15 Creatinine (0.55-1.02) mg/dL 0.9 Estimated GFR/1.73 m2 (mL/min/1.73m2) >= 60.00 Glucose (74-106) mg/dL 98 Calcium (8.5-10.1) mg/dL 8.6 Magnesium (1.8-2.4) mg/dL 2.1 Total Bilirubin (0.2-1.0) mg/dL 0.3 AST (15-37) U/L 21 ALT (14-59) U/L 15 Alkaline Phosphatase (46-116) U/L 70 Total Protein (6.4-8.2) g/dL 7.1 Albumin (3.4-5.0) g/dL 3.7 Lipase (73-393) U/L 89 Urine Color (Yellow) Yellow Urine Clarity (Clear) Clear Urine pH (5-8) 6.5 Ur Specific Dewitt (1.005-1.025) 1.010 Urine Protein (Negative) mg/dL Negative Urine Ketones (Negative) mg/dL Negative Urine Blood (Negative) Trace-intact H Urine Nitrite (Negative) Negative Urine Bilirubin (Negative) Negative Urine Urobilinogen (Up TO 0.2) EU/dL 0.2 Ur Leukocyte Esterase (Negative) Negative Urine RBC (0-2) HPF 0-2 Urine WBC (0-5) HPF 0-2 Ur Epithelial Cells (Negative) HPF Rare Urine Crystals (Negative) HPF Rare Amorphous Urine Bacteria (Negative) HPF Negative Urine Mucus (Negative) Negative Ur Culture Indicated? No Urine Glucose (Negative) mg/dL Negative HPI General Mode of arrival: ambulatory . Date/Time Provider Initiated Documentation: 12/21/21 18:38 . Limitations to Documentation: no limitations . Information obtained by: patient, RN notes reviewed and old records reviewed . HPI Narrative: 36-year-old female presents to the ER with chief complaint of midepigastric abdominal pain that radiates to the right upper quadrant which has been ongoing intermittently for the last 2 weeks. worsening constant pain over the last 24 to 48 hours. She reports nausea and acid reflux type symptoms denies any vomiting no diarrhea denies any chest pain shortness of breath cough fever or chills. Denies any dysuria or problems urinating. She did take a omeprazole tablet today. Denies any vaginal discharge or bleeding she is currently on her menses. Pain is worse after eating. Past surgical history includes cholecystectomy, past medical history includes generalized anxiety disorder major depressive disorder. Related Data Home Medications Medication Instructions Recorded Confirmed clotrimazole-betamethasone 1 1 applic topical BID 10 days #09/05/21 04/05/13 %-0.05 % topical cream grams Previous Rx's Medication Instructions Recorded clotrimazole-betamethasone 1 1 applic topical BID 10 days #15 09/05/21 %-0.05 % topical cream grams Allergies Allergy/AdvReac Type Severity Reaction Status Date / Time amoxicillin trihydrate Allergy Intermediate SORE Verified 12/21/21 18:36 [From Augmentin] JOINTS AND RASH potassium clavulanate Allergy Intermediate SORE Verified 12/21/21 18:36 [From Augmentin] JOINTS AND RASH cefazolin sodium [From Ancef] AdvReac Unknown Verified 12/21/21 18:36 General Stated Complaint: Abd Prob ENRICO: 3 Review of Systems All systems reviewed & are unremarkable except as noted in HPI and below Constitutional Constitutional: Denies chills and Denies fever(s) Gastrointestinal Gastrointestinal: Reports as per HPI, Reports abdominal pain, Denies hematochezia, Denies coffee ground emesis, Reports excessive flatus, Reports dyspepsia, Denies diarrhea, Reports nausea and Denies vomiting Genitourinary Genitourinary: Denies dysuria PFSH All Active Problems (Updated 12/21/21 @ 20:21 by Lin Briceño NP) Abdominal pain (Acute) Abnormal uterine bleeding (AUB) (Acute) Allergic rhinitis (Chronic) IBS (irritable bowel syndrome) (Chronic) Obesity (Chronic) Medical History Generalized anxiety disorder Major depressive disorder Surgical History History of esophagogastroduodenoscopy (EGD) (05/19/14) at [facility] [place] S/P cholecystectomy (09/12/13) S/P colonoscopy (02/13/14) Family History Mother Melanoma in situ Father Atrial fibrillation Brother No problems noted. Brother No problems noted. Son No problems noted. Son No problems noted. Daughter No problems noted. Maternal Grandfather Melanoma in situ Non Hodgkin's lymphoma Maternal Grandmother Myocardial infarction Heart disease Paternal Grandfather Heart disease Paternal Grandmother Breast cancer Maternal Aunt Breast cancer Social History Smoking/Tobacco Use Status: Former Tobacco Use tobacco type: cigarettes Quit Date: 06/22/06 Tobacco: How many years used: 4 Smoking risk assessment performed?: Yes Alcohol Intake: current Alcohol Intake frequency: a few times a month Alcohol type: beer Drug use: Never Substance use type: does not use Caregiver/Support person: No Household members: spouse and children Housing: house Communication Needs: None Do you need help understanding health information?: Rarely Pets and animals: Yes Pets and animals: dog(s) Sexually active: Yes Do you think of yourself as: straight/heterosexual Current gender identity: female What is your relationship status?: How often do you talk on the phone with friends or family?: three or more times per week How often do you get together with friends or relatives?: once per week How often do you attend cheondoism or methodist services?: 1-3 times per year Do you belong to any clubs or organized social groups?: no Panel score (0-1 are the most socially isolated patients): 2 Duration: < 15 minutes/day Special carloz needs: No Seatbelt use: always Drive intox or ride w/intox hearse driver: No Do you feel safe at home: Yes Do you feel safe in your relationship?: Yes Female Reproductive History Menstrual control method: other History History 4 Para 3 Hx # Term Pregnancies Multiple births Hx # Pregnancies Ectopic pregnancies AB induced 1 Hx Number of Living Children 3 AB spontaneous Exam Narrative Exam Narrative: Constitutional: Alert and oriented x3. Appears stated age. Normal body habitus. Head: Normocephalic, no trauma. Eyes: Pupils PERRL, Red reflex noted, EOM's intact. Eyelids symmetrical without lesions, discharge, or swelling. Chest: RRR, Normal S1, S2, distal pulses intact. Resp: Lungs clear to auscultation bilaterally, no wheezes, rales, or rhonchi. Abdomen: Soft, non-distended, Normoactive bowel sounds all 4 quads. No CVA tenderness with palpation, negative Hein sign no guarding no masses palpated. Musculoskeletal: Normal gait, 5/5 strength to all four extremities. Skin: No suspicious rashes or lesions. Capillary refill less than 2 sec. Neurologic: Cranial nerves II-XII intact. Alert and oriented x 3. Motor: No deficits noted. Sensory: Intact bilaterally all 4 extremities. Hematologic/Lymphatic: No ecchymosis, no lymphadenopathy. Course Vital Signs Vital signs: Vital Signs Temperature 36.6 C 12/21/21 18:32 Pulse 71 12/21/21 18:32 Respiratory Rate 18 12/21/21 18:32 Blood Pressure 123/81 12/21/21 18:32 Pulse Oximetry 100 12/21/21 18:32 Temperature 36.6 C 12/21/21 18:32 Temperature Source Temporal Artery Scan 12/21/21 18:32 Pulse 71 12/21/21 18:32 Respiratory Rate 18 12/21/21 18:32 Blood Pressure 123/81 12/21/21 18:32 Blood Pressure Position Sitting 12/21/21 18:32 Pulse Oximetry 100 12/21/21 18:32 Oxygen Delivery Method Room Air 12/21/21 18:32 Oxygen Flow Rate 0 12/21/21 18:32 Lab/Test Results Lab/Test Results: POC- Test(urine) Negative
[2021-12-21 19:03] LABS: Bacteria Negative HPF (Negative); Crystals Rare Amorphous HPF (Negative); Epithelial Cells Rare HPF (Negative); RBC 0-2 HPF (0-2); WBC 0-2 HPF (0-5)
[2021-12-21 19:08] LABS: Mucus Negative (Negative)
[2021-12-21 19:09] LABS: C & S Indicated? No
[2021-12-21 19:17] LABS: Abs Immature Grans 0.03 10^3/uL (0.0-0.06); Absolute Basophil Count 0.04 10^3/uL (0.0-0.2); Absolute Eosinophil Count 0.32 10^3/uL (0.0-0.7); Absolute Lymphocyte Count 1.94 10^3/uL (1.2-3.4); Absolute Monocyte Count 0.48 10^3/uL (0.1-0.8); Absolute Neutrophil Count 5.54 10^3/uL (1.2-6.7); Basophils % 0.5; Eosinophils % 3.8; HCT 38.6 % (36.0-46.0); HGB 12.8 g/dL (11.2-15.7); Immature Grans % 0.4; Lymphocytes % 23.2; MCH 28.8 pg (27.0-33.0); MCHC 33.2 % (32.0-36.0); MCV 87 fL (80-95); MPV 11.5 fL (8.0-11.0); Monocytes % 5.7; Neutrophils % 66.4; Platelet Count 173 10^3/uL (130-400); RBC 4.44 10^6/uL (3.93-5.22); RDW 11.9 % (11.7-14.6); RDW-SD 37.6 fL; WBC 8.35 10^3/uL (4.4-10.8)
[2021-12-21 19:32] LABS: ALT 15 U/L (14-59); AST 21 U/L (15-37); Albumin 3.7 g/dL (3.4-5.0); Alkaline Phosphatase 70 U/L (46-116); Anion Gap 7.7 mmol/L (3-11); BUN 15 mg/dL (7-18); Bilirubin, Total 0.3 mg/dL (0.2-1.0); CO2 26.3 mmol/L (21.0-32.0); CREATININE 0.9 mg/dL (0.55-1.02); Calcium 8.6 mg/dL (8.5-10.1); Chloride 103 mmol/L (98-107); Glucose 98 mg/dL (74-106); Lipase 89 U/L (73-393); Magnesium 2.1 mg/dL (1.8-2.4); Potassium 4.1 mmol/L (3.5-5.1); Sodium 137 mmol/L (136-145); Total Protein 7.1 g/dL (6.4-8.2)
== END 2021-12-21 21:00 | disposition home or self-care (01) ==
PROVIDERS: Emergency Provider Registered Nurse Emergency; PCP Nurse Practitioner Family
DX: R10.13 Epigastric pain (principal); R11.0 Nausea; Z87.891 Personal history of nicotine dependence
CPT/HCPCS: 80053; 81025; 83690; 99282; 81003; 81015; 83735; 85025

== ENCOUNTER 2022-01-21 03:29 | Outpatient (CLI) | payer MEDICAID, SELFPAY ==
[2022-01-21 13:05] LABS: ALT 18 U/L (14-59); AST 17 U/L (15-37); Alkaline Phosphatase 65 U/L (46-116); Anion Gap 7.7 mmol/L (3-11); BUN 8 mg/dL (7-18); Bilirubin, Total 0.4 mg/dL (0.2-1.0); CO2 27.3 mmol/L (21.0-32.0); CREATININE 0.8 mg/dL (0.55-1.02); Calcium 9.3 mg/dL (8.5-10.1); Chloride 100 mmol/L (98-107); Glucose 87 mg/dL (74-106); Potassium 3.4 mmol/L (3.5-5.1); Sodium 135 mmol/L (136-145)
== END 2022-01-21 03:30 | disposition home or self-care (01) ==
LOC: LBO 03:29
PROVIDERS: PCP Nurse Practitioner Family; Visit Provider Surgery
DX: R10.9 Unspecified abdominal pain (principal)
CPT/HCPCS: 36415; 80053

== ENCOUNTER → 2022-01-22 01:33 | Outpatient (CLI) | payer MEDICAID, SELFPAY ==
--- NOTE | 2022-01-22 07:15 | DI.RAD_ITS ---
Exam(s) RF SMALL BOWEL SERIES EXAM: RF SMALL BOWEL SERIES CLINICAL HISTORY: r/o malrotation, ABD PAIN,R10.9 TECHNIQUE: 2D and realtime digital imaging was performed. CONTRAST MATERIAL: Oral barium contrast was administered p.o.. COMPARISON: CT RENAL COLIC WO CONTRAST from 05/09/2013 CR ABD FLAT UPRIGHT PA CHEST from 06/08/[address] CHEST PE CTA from 03/19/2019 FINDINGS: The lab support tech view shows surgical clips in the right upper quadrant. There is no abnormal bowel dilatati on. There is normal quantity of stool. Transit time to the colon was 30 minutes following completio n of ingestion of the oral barium. The duodenal sweep has a normal position. The small bowel fold p attern is normal. The colon is normally positioned. There is no evidence of malrotation. IMPRESSION: Normal small bowel follow-through RADIATION DOSE DELIVERED: kandi Gerardo=0 mGy
[2022-01-22] MEDS: Barium Sulfate 60% W/V 355 ML BTL PO ×2 (10:13→10:14)
== END ==
PROVIDERS: PCP Nurse Practitioner Family; Visit Provider Surgery
DX: R10.9 Unspecified abdominal pain (principal)
CPT/HCPCS: 74250

== ENCOUNTER 2022-09-17 02:12 | Outpatient (CLI) | payer MEDICAID, SELFPAY ==
[2022-09-17 11:10] LABS: HCT 40.7 % (36.0-46.0); HGB 14.2 g/dL (11.2-15.7); MCH 29.6 pg (27.0-33.0); MCHC 34.9 % (32.0-36.0); MCV 85 fL (80-95); MPV 11.6 fL (8.0-11.0); Platelet Count 158 10^3/uL (130-400); RDW 11.9 % (11.7-14.6); RDW-SD 36.9 fL; WBC 5.45 10^3/uL (4.4-10.8)
[2022-09-17 11:57] LABS: ALT 16 U/L (14-59); AST 11 U/L (15-37); Albumin 4.3 g/dL (3.4-5.0); Alkaline Phosphatase 72 U/L (46-116); Anion Gap 8.2 mmol/L (3-11); BUN 12 mg/dL (7-18); Bilirubin, Total 0.6 mg/dL (0.2-1.0); CO2 26.8 mmol/L (21.0-32.0); Calcium 9.2 mg/dL (8.5-10.1); Calculated LDL 97 mg/dL (<100); Chloride 103 mmol/L (98-107); Cholesterol 171 mg/dL (<200); Estimated GFR 74.41 (mL/min/1.73m2); Glucose 94 mg/dL (74-106); HDL Cholesterol 65 mg/dL (40-60); Sodium 138 mmol/L (136-145); TSH (W/Ref FT4) 1.71 uIU/mL (0.36-3.74); Total Protein 7.7 g/dL (6.4-8.2); Triglyceride 45 mg/dL (<150)
== END 2022-09-17 02:13 | disposition home or self-care (01) ==
PROVIDERS: PCP Nurse Practitioner Family; Visit Provider Nurse Practitioner Family
DX: Z00.00 Encounter for general adult medical examination without abnormal findings (principal); R42 Dizziness and giddiness
CPT/HCPCS: 36415; 80053; 80061; 85027; 83036; 84443

== ENCOUNTER 2023-07-28 14:48 | Outpatient (REF) | payer MEDICAID, SELFPAY ==
--- NOTE | 2023-07-28 14:00 | ENDOMET_PTH ---
PATIENT: Sandra Gomez LOC: [facility] U#:[id number] AGE/SX: 37/F ROOM: RE07/28/[address]: Aurora Gee MD : 1985 BED: DIS: 07/28/2023 SPEC #: [id number] RECD: 07/28/23 17:21 STATUS: EMILE LAL #: [id number] ARACELI: 07/28/23 14:[address]: Aurora Gee DEPT: Surgical Specimen RECD BY: Sasha Bliss ENTERED: 07/28/23 17:21 SP TYPE: Endomet COBY DR: JENS Wright Tissues: 1 - ENDOMETRIUM BX/ESTEEETTE Procedures: GROSS AND MICRO LEVEL 4 Comments: [id number]
== END 2023-07-28 14:49 | disposition home or self-care (01) ==
LOC: LBN 14:48
PROVIDERS: PCP Nurse Practitioner Family; Visit Provider Obstetrics & Gynecology
DX: N84.0 Polyp of corpus uteri (principal); N93.8 Other specified abnormal uterine and vaginal bleeding
CPT/HCPCS: 88305

== ENCOUNTER → 2023-08-10 01:42 | Outpatient (CLI) | payer MEDICAID, SELFPAY ==
--- NOTE | 2023-08-10 07:00 | DI.MAMMO_ITS ---
Exam(s) MAMMO SCREENING EXAM: MAMMO SCREENING CLINICAL HISTORY: screening,z12.31, family h/o breast ca,z80.3 TECHNIQUE: Bilateral full field digital CC and MLO mammographic images were obtained with 3D tomosyn thesis and utilizing computer aided detection (CAD). COMPARISON: This is a baseline examination. FINDINGS: Masses/Architectural Distortion: None seen. Microcalcifications: No suspicious pleomorphic-type are seen. Skin Thickening/Nipple Retraction: None. IMPRESSION: 1. No significant interval change with no specific features of malignancy noted. 2. Unless there is more urgent need, screening mammography is recommended, as per [place] guidelines. BI-RADS Category 1 - Negative Breast Density - Category C - Heterogeneously dense Breast density category C or D implies that the patient has dense breast tissue. Dense breast tissue is very common and is not abnormal but dense breast tissue can make it harder to find cancer on a ma mmogram. Also, dense breast tissue may increase their breast cancer risk. This information about the result of the mammogram report was provided to the patient to raise their awareness. Use this report when you speak with the patient about their risks for breast cancer, which includes their family hist ory. At that time, you may recommend for more screening tests (Ultrasound or MRI) as they might be us eful based on their risk. A negative radiographic report should not delay biopsy if a dominant or clinically suspicious mass is present. Up to ten percent of cancers are not identified on mammography. A negative report may reinforce clinical impression. Adenosis and dense breasts may obscure an underlying neoplasm. False positive reports average 6 to 10%. Patient will receive a letter notifying them of these results.
== END ==
PROVIDERS: PCP Nurse Practitioner Family; Visit Provider Obstetrics & Gynecology
DX: Z12.31 Encounter for screening mammogram for malignant neoplasm of breast (principal); Z80.3 Family history of malignant neoplasm of breast
CPT/HCPCS: 77063; 77067

== ENCOUNTER 2023-09-01 04:31 | Outpatient (CLI) | payer MEDICAID, SELFPAY ==
[2023-09-01 16:31] LABS: HCT 37.8 % (36.0-46.0); HGB 13.1 g/dL (11.2-15.7); MCH 30.8 pg (27.0-33.0); MCHC 34.7 % (32.0-36.0); MCV 89 fL (80-95); MPV 11.5 fL (8.0-11.0); Platelet Count 163 10^3/uL (130-400); RBC 4.26 10^6/uL (3.93-5.22); RDW 11.9 % (11.7-14.6); RDW-SD 37.5 fL; WBC 6.35 10^3/uL (4.4-10.8)
== END 2023-09-01 04:32 | disposition home or self-care (01) ==
LOC: LBO 04:31
PROVIDERS: PCP Nurse Practitioner Family; Visit Provider Obstetrics & Gynecology
DX: Z01.818 Encounter for other preprocedural examination (principal); Z01.812 Encounter for preprocedural laboratory examination; N93.8 Other specified abnormal uterine and vaginal bleeding; N84.0 Polyp of corpus uteri
CPT/HCPCS: 36415; 85027; 86850; 86900; 86901; 85014; 85018

== ENCOUNTER 2023-09-02 05:58 | Day surgery (SDC) | payer MEDICAID, SELFPAY ==
[2023-09-02 06:15] VITALS: BP 98/81; PULSE 76; RESP 18; TEMP 36.4; O2SAT 100
--- NOTE | 2023-09-02 06:52 | W.ANESPRE ---
General Info Date of Service Date Performed: 09/02/23 Height: 5 ft 6 in Weight: 87.5 kg Body Mass Index (BMI): 31.1 Surgical Procedure: Operation Date: 09/02/23 07:40 Proposed Procedure Side Surgeon p Dilation & Curettage with Hysteroscopy, Polypectomy w/ Myosure Aurora Gee MD Meds Allergies and Home Medications Allergies Allergy/AdvReac Type Severity Reaction Status Date / Time amoxicillin trihydrate Allergy Intermediate Serum Verified 09/02/23 06:30 [From Augmentin] Sickness potassium clavulanate Allergy Intermediate SERUM Verified 09/02/23 06:30 [From Augmentin] SICKNESS cefazolin sodium [From Ancef] AdvReac Unknown Other (See Verified 09/02/23 06:30 Comment) Home Medication Medication Instructions Recorded docusate sodium 100 mg capsule 100 mg PO HS 01/20/22 (Colace) cetirizine 10 mg tablet 10 mg PO HS Seasonal allergies 08/31/23 Current Visit Medications: Current Medications Generic Name Dose Route Start Last Admin Trade Name Irving PRN Reason Stop Dose Admin Ringer's Solution 1,000 mls @ 125 mls/hr 09/02/23 06:00 IV 09/02/23 23:59 INFUSION ASHIA IV Miscellaneous Supplies 1 each 09/02/23 06:00 Iv Access IV 09/02/23 23:59 DIRECTED ASHIA Sodium Chloride 0 ml 09/02/23 06:00 Normal Saline Flush 10 Ml Syr IV 09/02/23 23:59 PRN PRN Sodium Chloride 0 ml 09/02/23 06:00 Normal Saline 10 Ml Vial IJ 09/02/23 23:59 DIRECTED PRN Sterile Water 0 ml 09/02/23 06:00 Water,Injection,Sterile 10 Ml Vial IJ 09/02/23 23:59 DIRECTED PRN PFSH Active Problems Active Problems: Problem Status Onset Code Abnormal uterine bleeding due to endometrial polyp N93.9, N84.0 Allergic rhinitis J30.9 IBS (irritable bowel syndrome) K58.9 Obesity E66.9 Medical History Medical History Family history of breast cancer Maternal aunt at 41yrs Paternal GM COVID-19 (~12/27/21) Major depressive disorder Generalized anxiety disorder Surgical History Surgical History [place]19[place]14[place] [facility] [place]13[place]14[place] S/P cholecystectomy (09/12/13) Tobacco Smoking/Tobacco Use Status: Former Tobacco Use Passive smoking exposure: Yes Second hand exposure: Yes Alcohol Alcohol Intake: current Alcohol intake frequency: a few times a month Alcohol type: beer Substance Use Substance use: Never Substance use type: does not use Prental History History 4 Para 3 Hx # Term Pregnancies Multiple births Hx # Pregnancies Ectopic pregnancies AB induced 1 Hx Number of Living Children 3 AB spontaneous Past Pregnancies Del. Date GA/Weeks # Preg Succ Route Wgt Sex Labor Lgth Anesthesia Location Prov Complic 11/07/07 40 Yes vaginal Female [facility] 05/06/15 40 Yes vaginal Male 09/06/17 40 Yes vaginal Male [facility] Delivery Date: 05/06/15 Last Updated by: Marianne Allred [facility] Vital Signs and Lab Results Vital Signs Most Recent Vital Signs in EMR: Most Recent Vital Signs Temp Pulse Resp BP Pulse Ox 36.4 C L 76 18 98/81 L 100 09/02/23 06:15 09/02/23 06:15 09/02/23 06:15 09/02/23 06:15 09/02/23 06:15 Point of Care Results Point of Care Results: POC- Test(urine) Negative 09/02/23 06:37 Lab Results Blood Type / Crossmatch: Patient ABO/Rh A Positive 09/01/23 Antibody Screen NEGATIVE 09/01/23 Complete Blood Count: White Blood Count 6.35 10^3/uL (4.4-10.8) 09/01/23 15:00 Red Blood Count 4.26 10^6/uL (3.93-5.22) 09/01/23 15:00 Hemoglobin 13.1 g/dL (11.2-15.7) 09/01/23 15:00 Hematocrit 37.8 % (36.0-46.0) 09/01/23 15:00 Platelet Count 163 10^3/uL (130-400) 09/01/23 15:00 Complete Metabolic Panel: No Data to Display Liver Function Panel: No Data to Display Coagulation Panel: No Data to Display Cardiac Panel: No Data to Display Arterial Blood Gas: No Data to Display Venous Blood Gas: No Data to Display Pancreas Panel: No Data to Display Thyroid Panel: No Data to Display Infectious Disease: No Data to Display Blood Cultures: No Data to Display Toxicology Panel: No Data to Display Panel: No Data to Display Anesthesia Assessment and Plan Anesthesia History Personal History: No History of Anesthesia Complications Family History: No Family History of Anesthesia Complications Exercise Tolerance Exercise Tolerance: Metabolic Equivalents>4 Pertinent Negatives Pertinent Negatives: No Symptoms of GERD, No Major Cardiovascular Symptoms or Complaints, No Major Pulmonary Symptoms or Complaints and No History of CVA/TIA Cardiac & Pulmonary Exam Cardiac Exam: Normal S1/S2 Heart Sounds Pulmonary Exam: Clear Bilateral Breath Sounds Implantable Cardiac Device Does patient have a Pacemaker or an ICD?: No Airway Exam Known Difficult Airway: No Mallampati Class: 2 Mouth Opening: Normal (> 3cm) Thyromental Distance: Greater than 3 cm Neck Range of Motion: Full ROM Neck Circumference: Normal Teeth Condition: Normal Dentition ASA Classification ASA Score: ASA 2 Emergency Case?: No NPO Status NPO Status: NPO Clears >2 hours, Solids >8 hours Status Status: Negative HCG Anesthesia Plan Resuscitation Status: Full Code Anesthesia Technique: General Anesthesia Airway Planned: Natural Airway Monitors Used: Standard Monitors
[2023-09-02] MEDS: Lactated Ringers 1,000 ML 125 ML IV (07:00)
[2023-09-02 07:40] VITALS: BMI 31.1
--- NOTE | 2023-09-02 07:57 | ENDOMET_PTH ---
PATIENT: Sandra Gomez LOC: [facility] U#:[id number] AGE/SX: 37/F ROOM: RE09/02/[address]: Aurora Gee MD : 1985 BED: DIS: 09/02/2023 SPEC #: [id number] RECD: 09/02/23 12:31 STATUS: EMILE REAnna #: [id number] ARACELI: 09/02/23 07:[address]: Aurora Gee DEPT: Surgical Specimen RECD BY: Sasha Bliss ENTERED: 09/02/23 12:31 SP TYPE: Endomet OT DR: JENS Wright Tissues: 1 - ENDOMETRIUM BX/ESTEEETTE Procedures: GROSS AND MICRO LEVEL 4 Comments: [id number]
[2023-09-02] MEDS: Bupivacaine 0.25% Pres-Free 30 ML VIAL (08:00)
[2023-09-02] MEDS: Silver Nitrate Stick 1 EACH (08:03)
[2023-09-02 08:15] VITALS: BP 113/79; PULSE 73; RESP 18; TEMP 36.3; O2SAT 100
--- NOTE | 2023-09-02 08:15 | ROE_ITS ---
Date of service: 09/02/23 Time of Service: 08:00 Operative Note Operative Note PRE-OP DIAGNOSIS: abnormal uterine bleeding, endometrial polyp POST-OP DIAGNOSIS: same PROCEDURE: Hysteroscopy, dilation and curettage, polypectomy SURGEON: Aurora Gee Refer to Anesthesia Record ESTIMATED BLOOD LOSS: 20 PATHOLOGY: other (endometrial curettings) COMPLICATIONS: None Patient was transported to: same day Patient's condition: stable Indications: Persistent intermenstrual bleeding, polypoid tissue on endometrial biopsy Findings: Small polyp in the lower uterine segment. Uterine cavity otherwise normal. Procedure Description: After informed consent was signed the patient was taken to the operating room and given General room air anesthesia.? SCDs were placed on her legs.? She was prepped and draped in the dorsal lithotomy position in the [facility].? A time out was performed. Her bladder was drained of urine if not done just prior to arrival to the room.? Exam under anesthesia revealed normal external genitalia, vagina normal for age and a normal sized uterus. A speculum was placed into the vagina to reveal the cervix.? The anterior lip of the cervix was grasped with a single tooth tenaculum.?The cervix was then dilated. The hysteroscope was assembled and the uterine cavity was visualized. A small polyp was noted protruding from the uterine cavity into the upper cervix. No other obvious abnormalities were noted. A sharp curettage was performed. The tenaculum was removed from the cervix with good hemostasis with silver nitrate.? The speculum was removed from the vagina. The patient was placed back into the supine position.? She was moved to the stretcher and taken to the recovery room in stable condition.
--- NOTE | 2023-09-02 08:20 | W.PM.DSUDISC ---
Date of service: 09/02/23 Time of Service: 09:00 Discharge Plan Disposition Patient Disposition: Home Discharge Details Attending Provider: Aurora Gee Primary Care Provider: Marybeth Bassett Home Meds and New Rx's Prescriptions: No Action docusate sodium [Colace] 100 mg capsule 100 mg PO HS cetirizine 10 mg tablet 10 mg PO HS Discharge Instructions Stand Alone Forms: DSU Post D&C Activity:: nothing in the vagina x24hrs Diet:: As Tolerated Discharge Orders Discharge Orders: Discharge Order (Routine); Ordered 09/02/23 Ordered By: Aurora Gee
[2023-09-02 08:47] VITALS: BP 103/71; PULSE 59; RESP 18; TEMP 36.4; O2SAT 99
--- NOTE | 2023-09-02 11:10 | W.ANESPOSTOP ---
Postoperative Evaluation Date, Time and Location Date Performed: 09/02/23 Time Performed: 08:58 Patient Location: Day Surgery Unit Vital Signs Most Recent Imported Vital Signs: Most Recent Vital Signs Temp Pulse Resp BP Pulse Ox 36.4 C L 59 L 18 103/71 99 09/02/23 08:47 09/02/23 08:47 09/02/23 08:47 09/02/23 08:47 09/02/23 08:47 Pain Score Most Recent Pain Score: Most Recent Pain Score Pain Level 1 09/02/23 08:47 Assessment Mental Status: Awake (Alert & Oriented to Patient Baseline) Airway and Respiratory Function: Patent airway with normal (patient baseline) respiratory exam Cardiovascular Function: Hemodynamically Stable Hydration Status: Adequately Hydrated Nausea & Vomiting: No Nausea or Vomiting Pain: Pain is tolerable per patient Peripheral Nerve Block: Patient did not receive a nerve block
== END 2023-09-02 05:59 | disposition home or self-care (01) ==
PROVIDERS: PCP Nurse Practitioner Family; Visit Provider Obstetrics & Gynecology
PROC: 0UDB8ZZ Extraction of Endometrium, Via Natural or Artificial Opening Endoscopic (ICD-10-PCS; CPT 58558; principal; 2023-09-02 07:30)
DX: N93.8 Other specified abnormal uterine and vaginal bleeding (principal); N84.0 Polyp of corpus uteri
CPT/HCPCS: 58558; 81025; 88305; J0131; J0665; J1100; J1885; J2001; J2405; J2704

== ENCOUNTER 2024-09-23 00:38 | Outpatient (CLI) | payer BC, SELFPAY ==
--- NOTE | 2024-09-23 07:45 | DI.MAMMO_ITS ---
Exam(s) MAMMO SCREENING EXAM: MAMMO SCREENING CLINICAL HISTORY: screening,Z12.39. TECHNIQUE: Bilateral full field digital CC and MLO mammographic images were obtained with 3D tomosyn thesis and utilizing computer aided detection (CAD). COMPARISON: Prior baseline mammogram of July 2023 was reviewed. FINDINGS: There has been no significant change in the appearance and distribution of the fibroglandular tissue. There are no new spiculated masses nor malignant appearing microcalcification groups. There is no significant architectural distortion nor skin thickening-retraction. IMPRESSION: No radiographic evidence of malignancy. No significant change compared to the baseline mammogram of [facility] 2023. BI-RADS Category 1 - Negative Breast Density - Category B - Scattered areas of fibroglandular density Breast density Category C or D implies that the patient has dense breast tissue. Dense breast tissue can make it harder to find cancer on a mammogram. Dense breast tissue is also associated with an incr eased risk of breast cancer. This information about the result of the mammogram report was provided to the patient to raise their awareness. Use this report when you speak with the patient about their risks for breast cancer, which includes their family history. At that time, you may recommend additional screening tests (Ultrasoun d or MRI) as these tests may add significant information. A negative radiographic report should not delay biopsy if a dominant or clinically suspicious mass is present. Up to ten percent of cancers are not identified on mammography. A negative report may reinforce clinical impression. Adenosis and dense breasts may obscure an underlying neoplasm. False positive reports average 6 to 10%. Patient will receive a letter notifying them of these results.
== END 2024-09-23 00:58 ==
LOC: DI 00:38
PROVIDERS: PCP Nurse Practitioner Family; Visit Provider Nurse Practitioner Family
DX: Z12.31 Encounter for screening mammogram for malignant neoplasm of breast (principal); R92.323 Mammographic fibroglandular density, bilateral breasts
CPT/HCPCS: 77063; 77067

== ENCOUNTER 2024-09-23 01:08 | Outpatient (CLI) | payer BC, SELFPAY ==
[2024-09-23 12:28] LABS: Absolute Basophil Count 0.03 10^3/uL (0.0-0.2); Absolute Eosinophil Count 0.05 10^3/uL (0.0-0.7); Absolute Lymphocyte Count 1.37 10^3/uL (1.2-3.4); Absolute Monocyte Count 0.22 10^3/uL (0.1-0.8); Absolute Neutrophil Count 2.59 10^3/uL (1.2-6.7); Basophils % 0.7 %; Eosinophils % 1.2 %; HGB 13.5 g/dL (11.2-15.7); Lymphocytes % 32.2 %; MCH 30.5 pg (27.0-33.0); MCHC 34.6 % (32.0-36.0); MCV 88 fL (80-95); MPV 12.5 fL (8.0-11.0); Monocytes % 5.2 %; Neutrophils % 60.7 %; Platelet Count 180 10^3/uL (130-400); RBC 4.43 10^6/uL (3.93-5.22); RDW-SD 37.6 fL; WBC 4.26 10^3/uL (4.4-10.8)
[2024-09-23 13:07] LABS: Anion Gap 9.1 mmol/L (3-11); BUN 10 mg/dL (7-18); CO2 27.9 mmol/L (21.0-32.0); CREATININE 0.8 mg/dL (0.55-1.02); Calcium 9.1 mg/dL (8.5-10.1); Chloride 104 mmol/L (98-107); Estimated GFR 96.06 (mL/min/1.73m2); Ferritin 26 ng/mL (8-252); Glucose 89 mg/dL (74-106); Potassium 3.8 mmol/L (3.5-5.1); Sodium 141 mmol/L (136-145); TSH (W/Ref FT4) 1.96 uIU/mL (0.36-3.74); Vitamin B12 279 pg/mL (193-986); Vitamin D 25 Total 12 ng/mL (30-100)
[2024-09-23 20:00] LABS: Hepatitis C Ab w Rflx HCV PCR Negative (Negative)
== END 2024-09-23 01:09 | disposition home or self-care (01) ==
LOC: LOS 01:08
PROVIDERS: PCP Nurse Practitioner Family; Visit Provider Nurse Practitioner Family
DX: R53.83 Other fatigue (principal); Z11.59 Encounter for screening for other viral diseases
CPT/HCPCS: 36415; 80048; 82306; 86803; 82607; 82728; 84443; 85025